=== PATIENT | female | born 1995 | race Caucasian/White ===

== ENCOUNTER → 2017-08-18 | Outpatient (CLI) | payer OTHER ==
[~2017-08-18] MED LIST: AMOX-362 PO; AMOX500T10 PO; IBUP600T22 PO; MINOCY50PT PO; NO RTN MEDS; NORG1TAB76 PO; OXYC-865 PO; SER50 PO
== END ==
LOC: RESP 19:50
PROVIDERS: ATTEND Obstetrics & Gynecology
DX: G47.30 Sleep apnea, unspecified (principal); G47.61 Periodic limb movement disorder; R53.83 Other fatigue; R06.83 Snoring

== ENCOUNTER → 2017-11-22 | Outpatient (CLI) | payer OTHER ==
--- NOTE | 2017-11-23 10:51 | RADIOLOGY IMAGING REPORT ---
FACILITY: [facility] - [place] PATIENT NAME: JOSEE DONOHUE : [id number] MR: [id number] V: [id number] EXAM DATE: [id number] ORDERING PHYSICIAN: EVER MOSS TECHNOLOGIST: Tiffanie Colon RDMS PROCEDURE:US RIGHT BREAST COMPLETE COMPARISON:None. INDICATIONS:right breast lump FINDINGS: In the location of the patient's palpable finding in the 11 o'clock position of the Right breast there is a polylobular hypoechoic mass measuring 1.65 x 0.8 x 2cm with faint acoustic enhancement. No acoustic shadowing this may represent a fibroadenoma although other solid lesions not total excluded. In the 9 o'clock position of the Right breast 5cm from the nipple there is an 8.6 x 4.5 x 6.6mm ovoid hypoechoic nodule with faint acoustic enhancement and no acoustic shadowing. DIAGNOSTIC CATEGORY 3--PROBABLY BENIGN FINDING. RECOMMENDATIONS: SIX MONTH FOLLOW-UP ULTRASOUND: RIGHT BREAST. IMPRESSION: BIRADS 3: Probably benign finding. There are 2 solid masses in the Right breast 1 in the 11 o'clock position 3cm from the nipple and 1 in the 9 o'clock 5cm from the nipple which may represent fibroadenomas although other solid masses not totally ruled out and a 6 month follow-up Right breast Ultrasound is recommended unless clinical findings warrant more immediate attention. Dictated by: Fanny Sawyer M.D. on 11/22/2017 at 18:25 Transcribed by: CHERELLE on 11/23/2017 at 9:09 Approved by: Fanny Sawyer M.D. on 11/23/2017 at 10:49 [facility]
== END ==
LOC: US 01:52
PROVIDERS: ATTEND Obstetrics & Gynecology
DX: N63.12 Unspecified lump in the right breast, upper inner quadrant (principal)

== ENCOUNTER → 2018-04-05 | Outpatient (CLI) | payer OTHER ==
--- NOTE | 2018-04-06 11:27 | RADIOLOGY IMAGING REPORT ---
FACILITY: [facility] - [place] PATIENT NAME: JOSEE DONOHUE : [id number] MR: [id number] V: [id number] EXAM DATE: [id number] ORDERING PHYSICIAN: EVER MOSS TECHNOLOGIST: Sierra Turner RDMS(ABD,OBGYN,BR),RVT PROCEDURE:US RIGHT BREAST COMPLETE COMPARISON:Right breast Ultrasound of 11/22/17 INDICATIONS:6 MO F/U FINDINGS: In the 11 o'clock position of the Right breast there is an oval hypoechoic parallel circumscribed slightly lobular mass measuring 1.6 x 1.7 x 0.9cm & appears relatively unchanged. In the 9 o'clock position of the Right breast there is an additional ovoid hypoechoic parallel slightly lobular circumscribed mass measuring 0.8x 0.5 x 0.cm that appears relatively unchanged when measured in the same tissue planes. There is no acoustic shadowing demonstrated in either mass. DIAGNOSTIC CATEGORY 3--PROBABLY BENIGN FINDING. RECOMMENDATIONS: SIX MONTH FOLLOW-UP ULTRASOUND: RIGHT BREAST. IMPRESSION: BIRADS 3: Probably benign finding. The 2 hypoechoic masses in the Right breast in the 11 & 9 o'clock positions are relatively unchanged. A 6 month follow up Ultrasound of the Right breast is recommended to document stability for a 2 year period. Dictated by: Fanny Sawyer M.D. on 04/05/2018 at 17:12 Transcribed by: DAVE on 04/06/2018 at 10:27 Approved by: Fanny Sawyer M.D. on 04/06/2018 at 11:26 [facility]
== END ==
LOC: US 00:43
PROVIDERS: ATTEND Obstetrics & Gynecology
DX: R92.2 Inconclusive mammogram (principal); N63.0 Unspecified lump in unspecified breast